=== PATIENT | male | born 1990 | race Hispanic/Latino ===

== ENCOUNTER 2025-06-03 08:53 | Emergency (ER) | payer SELFPAY ==
[~2025-06-03] VITALS: Ht 175.3 cm; Wt 89.8 kg
[2025-06-03 08:54] VITALS: TEMP 99.1
[2025-06-03 09:08] LABS: IMMATURE GRANULOCYTE ABSOLUTE 0.07 K/uL (0-1); NUCLEATED RED BLOOD CELLS 0.0 % (0.0-0.19); PLATELET COUNT (AUTO) 261 K/uL (130-400); RED BLOOD CELL COUNT(AUTO) 5.10 MIL/uL (4.50-6.20); RED CELL DISTRIBUTION WIDTH 11.8 % (11.0-15.5); WHITE BLOOD COUNT (AUTO) 16.4 K/uL (4.8-10.8)
--- NOTE | 2025-06-03 09:14 | EKG ---
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
[2025-06-03 09:20] LABS: ALCOHOL, BLOOD < 3 mg/dL (0-10)
[2025-06-03 09:31] LABS: ASPARTATE AMINOTRANSFERASE 28 U/L (10-37); CREATINE KINASE, TOTAL 57 U/L (21-232); CREATININE 1.0 mg/dL (0.5-1.3); GLOMERULAR FILTR. RATE CALC 103 mL/min (>90); GLUCOSE,RANDOM 120 mg/dL (70-105); SODIUM SERUM 132 mmol/L (136-145); TOTAL PROTEIN, SERUM 7.8 g/dL (6.0-8.3); UREA NITROGEN, BLOOD 9 mg/dL (7-18)
[2025-06-03] MEDS: 0.9%NACL 1000ML 1,000 ML IV ONE (09:40)
[2025-06-03 09:44] LABS: APPEARANCE,URINE CLEAR (CLEAR); GLUCOSE, URINE (UA) NEGATIVE (NEGATIVE); LEUKOCYTE ESTERASE ,URINE NEGATIVE Leu/uL (NEGATIVE); NITRATE,URINE NEGATIVE (NEGATIVE); OCCULT BLOOD,URINE NEGATIVE (NEGATIVE)
[2025-06-03 09:45] LABS: ADD UA MICROSCOPIC NO
[2025-06-03 09:52] LABS: AMPHET/METH SCREEN,URINE NEGATIVE (NEGATIVE); BARBITURATE SCREEN, URINE NEGATIVE (NEGATIVE); CANNABINOID SCREEN,URINE NEGATIVE (NEGATIVE); COCAINE SCREEN,URINE NEGATIVE (NEGATIVE)
--- NOTE | 2025-06-03 10:07 | ERN ---
General Chief Complaint: Abdominal Pain Stated Complaint: EPIGASTRIC PAIN, N/V Time Seen by MD: 08:54 Source: patient History of Present Illness Initial Comments Patient is a 34-year-old with a three day complaining of epigastric pain. Per patient he has had these symptoms before was evaluated hospital. He states he does drink alcohol but has not drank in couple of days. The pain is localized to the epigastric region. Allergies: Coded Allergies: No Known Allergies (Unverified Allergy, Unknown, 06/03/25) Past Medical History Past Medical History: Asthma Past Surgical History: None ROS Dictation CONSTITUTIONAL: No chills, no fever, no weakness, no diaphoresis, no malaise. HEAD/FACE: No signs of trauma. EENT: No eye pain, no blurred vision, no tearing, no double vision, no ear pain, no ear discharge, no nose pain, no nasal congestion, no throat pain, no throat swelling, no mouth pain. RESPIRATORY: No cough, no orthopnea, no SOB, no stridor, no wheezing. CARDIOVASCULAR: No chest pain, no edema, no palpitations, no syncope. GASTROINTESTINAL/ABDOMINAL: abdominal pain, no constipation, no diarrhea, no nausea, no vomiting. GENITOURINARY: No abnormal discharge, no dysuria, no frequent urination, no hematuria. No complaints of pain in the genitals. MUSCULOSKELETAL: No back pain, no gout, no joint pain, no joint swelling, no muscle pain, no muscle stiffness, no neck pain. INTEGUMENTARY: No change in color, no change in hair/nails, no dryness, no lesion, no lumps, no rash. NEUROLOGICAL/PSYCH: No anxiety, not depressed, no emotional problem, no headache, no numbness, no pre-existing deficit, no history of seizures, no tremors, no weakness. HEMATOLOGIC/LYMPHATIC: Not anemic, no history of blood clots, no apparent bleeding, no bruising, glands not swollen. All Systems Negative, Except as Noted. Physical Exam Physical Exam Dictation VITAL SIGNS: Reviewed. GENERAL APPEARANCE: Alert, oriented x3, no acute distress, obese. HEAD AND FACE: Non-traumatic. EYES: PERRL, pink conjunctivas, eyelid no trauma, anterior chamber clear. EARS: Pinnas intact and no signs of trauma or erythema. Ear canals clear and no discharge. TMs no erythema. NOSE: No discharge, no bleeding. OROPHARYNX: Mouth normal, teeth no caries, tongue pink. Pharynx clear, no erythema. Tonsils no exudates, no abscesses noted. Mucous membrane moist. NECK: Supple, non-tender, no thyromegaly, no masses, no JVD, no bruits. BREAST: Deferred. CHEST: No tenderness, no crepitus, no paradoxical movement, no retractions. LUNGS: Clear, well-ventilated, symmetric, no rales, no wheezing, no rhonchi, no stridor, good breath sounds bilaterally. HEART: Regular rate, regular rhythm, no murmur, no gallops. VASCULAR: No peripheral edema. ABDOMEN: Soft, positive bowel sounds, nondistended, no guarding, epigastric tenderness, no rebound, no masses no hepatomegaly, no splenomegaly, no Hawkins's sign, no hernias. RECTAL: Deferred. GENITAL: Deferred. NEUROLOGICAL: Normal speech, gross motor function intact, gross sensory function intact. MUSCULOSKELETAL: Neck nontender, full range of motion, back nontender, full range of motion. EXTREMITIES: Nontender, full range of motion. SKIN: Color pink, dry, no turgor, no rash, no lacerations, no abrasions, no contusions. LYMPHATICS: Deferred. Results Laboratory and Microbiology Lab and Micro Result Laboratory Tests Test 06/03/25 09:03 06/03/25 09:35 White Blood Count 16.4 K/uL (4.8-10.8) H Red Blood Count 5.10 MIL/uL (4.50-6.20) Hemoglobin 15.5 g/dL (14.0-18.0) Hematocrit 45.3 % (42-54) Mean Corpuscular Volume 88.8 fL (79-99) Mean Corpuscular Hemoglobin 30.4 pg (27.0-33.0) Mean Corpuscular Hemoglobin Concent 34.2 g/dL (32.0-36.0) Red Cell Distribution Width 11.8 % (11.0-15.5) Platelet Count 261 K/uL (130-400) Mean Platelet Volume 10.3 fL (7.5-10.5) Immature Granulocyte % (Auto) 0.4 % (0-1) Neutrophils (%) (Auto) 91.7 % (40.0-77.0) H Lymphocytes (%) (Auto) 3.7 % (21.0-51.0) L Monocytes (%) (Auto) 3.4 % (3.0-13.0) Eosinophils (%) (Auto) 0.4 % (0.0-8.0) Basophils (%) (Auto) 0.4 % (0.0-5.0) Neutrophils # (Auto) 15.0 K/uL (1.8-7.7) H Lymphocytes # (Auto) 0.6 K/uL (1.0-4.8) L Monocytes # (Auto) 0.6 K/uL (0.1-1.0) Eosinophils # (Auto) 0.06 K/uL (0.00-0.70) Basophils # (Auto) 0.06 K/uL (0.00-0.20) Absolute Immature Granulocyte (auto 0.07 K/uL (0-1) Nucleated Red Blood Cells 0.0 % (0.0-0.19) White Cell Morphology Comment See comments Sodium Level 132 mmol/L (136-145) L Potassium Level 3.7 mmol/L (3.5-5.1) Chloride Level 94 mmol/L (101-111) L Carbon Dioxide Level 28 mmol/L (21-32) Blood Urea Nitrogen 9 mg/dL (7-18) Creatinine 1.0 mg/dL (0.5-1.3) Glomerular Filtration Rate Calc 103 mL/min (>90) Random Glucose 120 mg/dL (70-105) H Total Calcium 8.7 mg/dL (8.5-10.1) Total Bilirubin 1.8 mg/dL (0.2-1.0) H Aspartate Amino Transf (AST/SGOT) 28 U/L (10-37) Alanine Aminotransferase (ALT/SGPT) 64 U/L (12-78) Alkaline Phosphatase 101 U/L (50-136) Total Creatine Kinase 57 U/L (21-232) Troponin I High Sensitivity < 4 ng/L (4-75) L Total Protein 7.8 g/dL (6.0-8.3) Albumin 4.0 g/dL (3.5-5.0) Lipase 18 U/L (16-77) Serum Alcohol < 3 mg/dL (0-10) Urine Color YELLOW (YELLOW) Urine Appearance CLEAR (CLEAR) Urine pH 6.5 (5.0-8.0) Urine Specific Berry 1.025 (1.001-1.031) Urine Protein NEGATIVE mg/dL (NEGATIVE) Urine Glucose (UA) NEGATIVE mg/dL (NEGATIVE) Urine Ketones NEGATIVE mg/dL (NEGATIVE) Urine Occult Blood NEGATIVE (NEGATIVE) Urine Nitrate NEGATIVE (NEGATIVE) Urine Bilirubin NEGATIVE mg/dL (NEGATIVE) Urine Urobilinogen 0.2 mg/dL (0.2-1.0) Urine Leukocyte Esterase NEGATIVE [place]/uL Urine Opiates Screen NEGATIVE (NEGATIVE) Urine Barbiturates Screen NEGATIVE (NEGATIVE) Urine Phencyclidine Screen NEGATIVE (NEGATIVE) Urine Amphetamines Screen NEGATIVE (NEGATIVE) Urine Benzodiazepines Screen NEGATIVE (NEGATIVE) Urine Cocaine Screen NEGATIVE (NEGATIVE) Urine Marijuana (THC) Screen NEGATIVE (NEGATIVE) Labs Reviewed?: Yes EKG/XRAY/US/CT/MRI CT Scan Comment [address] [address] IMAGING REPORT Signed PATIENT: ROBERT BENJAMIN JR MR#: [id number] : 1990 SEX: M AGE: 34 LOCATION: [facility] ORDER [id number] STATUS: [facility] REPORT#: [id number] SERVICE 1000 REASON: abd pain ORDERING PHYSICIAN: JAYASHREE GONZALES MD PROCEDURE: ABD PEL WO - CT ABDOMEN/PELVIS W/O CONTRAST EXAM: CT Abdomen and Pelvis Without IV Contrast. CLINICAL HISTORY: Abdominal pain. TECHNIQUE: Axial computed tomography images of the abdomen and pelvis obtained without intravenous contrast. CONTRAST: No IV contrast. COMPARISON: None provided. FINDINGS: LUNG BASES: Clear. No pleural effusions. LIVER: Diffuse decreased attenuation consistent with fatty infiltration. No focal hepatic lesion identified. GALLBLADDER AND BILE DUCTS: Normal. No gallstones or biliary ductal dilatation. PANCREAS: Normal in size and contour. No peripancreatic inflammation. SPLEEN: Normal. ADRENAL GLANDS: Normal. KIDNEYS, URETERS, AND BLADDER: Normal renal size and contour. No hydronephrosis, hydroureter, or calculi. Urinary bladder unremarkable. STOMACH AND BOWEL: Uncomplicated colonic diverticulosis. No bowel obstruction, enteritis, or colitis. APPENDIX: No CT signs of appendicitis appendix not visualised PERITONEUM: No free fluid or free air. LYMPH NODES: No lymphadenopathy. REPRODUCTIVE: Unremarkable as visualized. VASCULATURE: No evidence of abdominal aortic aneurysm. BONES: No acute osseous pathology or aggressive lesion. IMPRESSION: * Fatty liver changes. * Uncomplicated colonic diverticulosis. * No acute intra-abdominal or pelvic abnormality. /[place] DICTATED BY: TIERRA JAIN MD DATE: 06/03/251207 ELECTRONICALLY SIGNED BY: TIERRA JAIN MD DATE: 06/03/251207 MDM MDM: Differential diagnosis: Gastroenteritis, diverticulosis, appendicitis, Rationale: Tests considered and ordered secondary to shared decision making include: Previous outside records reviewed: Old ER visits. Risk of complication and/or morbidity or mortality of patient management: None Medications-Per medication reconciliation Need for hospitalization: Patient does not meet criteria for hospitalization. Need for emergency major/minor surgery: No Patient is a 34-year-old male coming in complaining of abdominal pain. CT did not disclose acute findings. Laboratory workup within normal limits. Patient will be discharged in stable condition with a diagnosis of the gastroenteritis antibiotics will be provided for symptomatic relief. ED Course Orders Procedure Category Date Status Time Cbc With Differential LAB 06/03/25 Complete 08:57 Comprehensive LAB 06/03/25 Complete Metabolic Panel 08:57 Troponin I High LAB 06/03/25 Complete Sensitivity 08:57 Urinalysis Profile LAB 06/03/25 Complete 08:57 12 Lead Ekg Tracing- EKG 06/03/25 Complete Technical 08:57 0.9%Nacl 1000ml (Ns PHA 06/03/25 Complete 1000ml) 09:00 Ondansetron 4mg Inj PHA 06/03/25 Complete (Zofran 4mg Inj) 09:00 Pantoprazole 40mg Inj PHA 06/03/25 Complete (Protonix 40mg Inj 09:00 Creatine Kinase, Total LAB 06/03/25 Complete 08:57 Lipase LAB 06/03/25 Complete 08:57 Drug Screen Urine LAB 06/03/25 Complete 08:57 Alcohol, Blood LAB 06/03/25 Complete 08:57 Ct Abdomen/Pelvis W/O CT 06/03/25 Resulted Contrast 10:00 Current Medications Medications (Trade) Dose Ordered Sig/Tadeo Route PRN Reason Start Time Stop Time Status Last Admin Dose Admin Ondansetron HCl (zoFRAN 4MG INJ) 4 mg ONCE ONCE IVP 06/03/25 09:00 06/03/25 09:01 DC 06/03/25 09:40 Pantoprazole Sodium (PROTonix 40MG INJ) 40 mg ONCE ONCE IVP 06/03/25 09:00 06/03/25 09:01 DC 06/03/25 09:40 Sodium Chloride 1,000 ml @ 0 mls/hr ONCE ONCE IV 06/03/25 09:00 06/03/25 09:01 DC 06/03/25 09:40 Vital Signs Date Time Temp Pulse Resp B/P (MAP) Pulse Ox O2 Delivery O2 Flow Rate FiO2 06/03/25 11:13 98 16 120/68 99 Room Air* 0 21 06/03/25 10:13 97 16 127/74 98 Room Air* 0 21 06/03/25 08:54 99.1 105 20 140/91 99 Room Air 0 DX & DISP Disposition: Discharge Departure Impression: Primary Impression: Gastroenteritis Additional Impressions: Diverticulosis, Diverticulosis Condition: Stable Scripts Lactobacillus Acidophilus (Acidophilus Probiotic) 500 Million Cell Capsule 1 CAP PO BID for 7 Days, #14 CAP 0 Refills Prov: JAYASHREE GONZALES MD 06/03/25 Pantoprazole Sodium (Protonix) 40 Mg Ectab 1 TAB PO DAILY for 30 Days, #30 TAB 0 Refills Prov: JAYASHREE GONZALES MD 06/03/25 Azithromycin (Azithromycin) 500 Mg Tablet 1 TAB PO DAILY for 5 Days, #5 TAB 0 Refills Prov: JAYASHREE GONZALES MD 06/03/25 Additional Instructions: FOLLOW-UP WITH PRIMARY CARE PROVIDER IN 1 TO 2 DAYS. TAKE MEDICATIONS DIRECTED HERE IN THE EMERGENCY ROOM. OKAY TO CONTINUE HOME MEDICATIONS UNLESS OTHERWISE DISCUSSED DURING YOUR VISIT IN THE EMERGENCY ROOM TODAY. RETURN TO YOUR NEAREST EMERGENCY ROOM IF SYMPTOMS WORSEN OR IF THERE IS NO IMPROVEMENT. CALL 911 IF YOU NEED IMMEDIATE ASSISTANCE. TAKE TYLENOL [id number] NEEDED AND IF NO CONTRAINDICATIONS ARE PRESENT. INCREASE ORAL HYDRATION. A WOUND CULTURE OR URINE CULTURE WAS ORDERED HERE IN THE EMERGENCY ROOM DEPARTMENT PLEASE FOLLOW-UP WITH PRIMARY CARE PROVIDER AND ADVISE THEM TO GET REPORTS FROM OUR FACILITY. IF YOU HAD ANY ISABEL WRAP/SPLINTS THAT WERE APPLIED HERE, PLEASE DO NOT REMOVE THEM UNTIL YOU SEE YOUR PRIMARY CARE OR SPECIALTY. Referrals: Referrals: SELF,REFERRAL (PCP) CARRINGTON RIDER MD Time of Disposition: 12:04 JAYASHREE GONZALES MD Jun 03, 2025 10:07
--- NOTE | 2025-06-03 11:08 | HMCIMG ---
EXAM: CT Abdomen and Pelvis Without IV Contrast. CLINICAL HISTORY: Abdominal pain. TECHNIQUE: Axial computed tomography images of the abdomen and pelvis obtained without intravenous contrast. CONTRAST: No IV contrast. COMPARISON: None provided. FINDINGS: LUNG BASES: Clear. No pleural effusions. LIVER: Diffuse decreased attenuation consistent with fatty infiltration. No focal hepatic lesion identified. GALLBLADDER AND BILE DUCTS: Normal. No gallstones or biliary ductal dilatation. PANCREAS: Normal in size and contour. No peripancreatic inflammation. SPLEEN: Normal. ADRENAL GLANDS: Normal. KIDNEYS, URETERS, AND BLADDER: Normal renal size and contour. No hydronephrosis, hydroureter, or calculi. Urinary bladder unremarkable. STOMACH AND BOWEL: Uncomplicated colonic diverticulosis. No bowel obstruction, enteritis, or colitis. APPENDIX: No CT signs of appendicitis appendix not visualised PERITONEUM: No free fluid or free air. LYMPH NODES: No lymphadenopathy. REPRODUCTIVE: Unremarkable as visualized. VASCULATURE: No evidence of abdominal aortic aneurysm. BONES: No acute osseous pathology or aggressive lesion. IMPRESSION: * Fatty liver changes. * Uncomplicated colonic diverticulosis. * No acute intra-abdominal or pelvic abnormality. /[place]
[2025-06-03 11:13] VITALS: BP 120/68; PULSE 98; RESP 16; O2SAT 99
[2025-06-03] MEDS ORDERED: PANT40TA55 PO (12:05)
[2025-06-03] MEDS ORDERED: AZIT500T4 PO (12:05)
[2025-06-03] MEDS ORDERED: LACT-356 PO (12:05)
--- NOTE | 2025-06-03 12:19 | NUR ---
PASSED PO CHALLENGE
== END 2025-06-03 12:21 | disposition home or self-care (01) ==
LOC: EDH 08:53
DX: K52.9 Noninfective gastroenteritis and colitis, unspecified (principal); K57.30 Diverticulosis of large intestine without perforation or abscess without bleeding; J45.909 Unspecified asthma, uncomplicated
CPT/HCPCS: 99285; 74176; 96374; 96361; 96375; 82550; 84484; 80053; 80305; 83690; 85025; 81003; 36415; 93005; J7030; J2405; J2470